=== PATIENT | male | born 1940 | race Caucasian/White ===

== ENCOUNTER 2016-08-11 12:45 | Emergency (ER) | payer MEDICARE ==
[2016-08-11 13:25] LABS: BASOPHILS 0.5 % (0.0-2.0); EOSINOPHILS 0.6 % (0.0-6.0); HEMATOCRIT 44.8 % (42.0-54.0); HEMOGLOBIN 15.4 g/dL (14.0-18.0); LYMPHOCYTES 12.2 % (20.0-40.0); LYMPHOCYTES# 0.8 X 10^3uL (0.8-3.8); MEAN CELL VOLUME 94.4 fL (80.0-100.0); MEAN CORPUS. HGB CONCENTRATION 34.4 g/dL (32.0-36.0); MEAN CORPUSCULAR HEMOGLOBIN 32.5 pg (29.0-35.0); MEAN PLATELET VOLUME 8.1 fL (7.4-10.4); MONOCYTES 6.7 % (2.0-10.0); MONOCYTES# 0.5 X 10^3uL (0.2-1.0); NEUTROPHILS# 5.4 X 10^3uL (2.6-6.7); RED BLOOD COUNT 4.74 X 10^6uL (4.20-6.10); RED CELL DISTRIBUTION WIDTH 13.1 % (11.5-14.5); WHITE BLOOD COUNT 6.7 X 10^3uL (3.9-10.7)
[2016-08-11] MEDS ORDERED: NORMAL SALINE 500 ML IV ONE ×2 (13:29→14:21)
[2016-08-11 13:32] LABS: CALCIUM 9.5 mg/dL (8.4-10.2); CREATININE 1.3 mg/dL (0.7-1.3); POTASSIUM 5.6 mmol/L (3.5-5.1)
[2016-08-11] MEDS ORDERED: INSULIN REGULAR HUMAN 100 UNITS/ML ML ONE (13:32)
[2016-08-11 13:37] LABS: BETA HYDROXYBUTYRATE 1.17 mmol/L (<0.40)
[2016-08-11 16:21] LABS: BETA HYDROXYBUTYRATE 0.23 mmol/L (<0.40); CALCIUM 9.4 mg/dL (8.4-10.2); CREATININE 1.2 mg/dL (0.7-1.3); POTASSIUM 4.5 mmol/L (3.5-5.1)
--- NOTE | 2016-08-11 16:49 | ER NURSING DOCUMENTATION ---
Nurse's Notes [facility] Name:Bernard Valles Age:75 yrs Sex:Male :1940 Arrival Date:08/11/2016 Time:12:45 Bed4 Private MD: Diagnosis:Diabetes Mellitus, Type 1 with Hyperglycemia Presentation: 08/11 12:55 Presenting complaint: Patient states: his insulin pump quit working and his blood sugar sc1 is over 400. Pt. visiting from [facility] Transition of care: patient was not received from another setting of care. Notified ED Physician of patient's arrival and CC Dr. Eason notified. 12:55 Acuity: FREEMAN 3 sc1 12:55 Method Of Arrival: Private Vehicle [facility] [place] Triage Assessment: 12:59 General: Appears in no apparent distress, well developed, well nourished, well groomed, sc1 Behavior is cooperative, pleasant. Pain: Denies pain. Historical: - Allergies: No known drug Allergies; - Home Meds: 1. humalog pump 2. Lisinopril Oral 3. Hydrochlorothiazide Oral 4. Levoxyl Oral 5. Vitamin B-12 Oral 6. cholesterol med - PMHx: Diabetes - IDDM; - PSHx: HERNIA REPAIR; - Ebola Screening: : Patient negative for fever greater than or equal to 101.5 degrees Fahrenheit, and additional compatible Ebola Virus Disease symptoms. Patient denies exposure to infectious person. Patient denies travel to an Ebola-affected area in the 21 days before illness onset. No symptoms or risks identified at this time. . - Immunization history: Pneumococcal vaccine is up to date, Flu Vaccine < 1 year. - Social history: Smoking status: Patient states was never smoker of tobacco. Patient/guardian denies using alcohol, street drugs, IV drugs, marijuana. Screenin:26 Infectious Disease Risk None. Abuse screen: Denies threats or abuse. Nutritional sc1 screening: No deficits noted. Vital Signs: 13:00 BP 152 / 76; Pulse 76; Resp 18; Temp 98.1; Pulse Ox 93% on R/A; sc1 16:04 BP 126 / 68 (auto/); sc1 16:04 Pulse Ox 93% ; sc1 16:04 Pulse 70; Resp 18; sc1 ED Course: 12:46 Patient arrived in ED. ama 12:55 Radha Navarro RN is Primary Nurse. sc1 12:59 Triage completed. sc1 13:13 Isaac Eason MD is Attending Physician. il 13:25 Inserted peripheral IV: 20 gauge in right forearm and blood collected. sc1 13:26 Valuables Remains with patient. sc1 16:55 Discontinued IV intact, bleeding controlled, pressure dressing applied, No sc1 redness/swelling at site. Administered Medications: 13:25 Drug: Insulin Regular Human 10 units; Route: Sub-Q; Site: right upper arm; sc1 16:58 Follow up: Response: No adverse reaction; No adverse reaction, blood sugar is lowered. il1 13:25 Drug: NS 0.9% 500 ml; Route: IV; Rate: bolus; Site: right forearm; Delivery: [place] sc1 Tubing; 15:20 Follow up: IV Status: Completed infusion; IV Intake: 500ml 14:11 Drug: NS 0.9% 500 ml; Route: IV; Rate: bolus; Site: right forearm; Delivery: [place] sc1 Tubing; 15:24 Follow up: IV Status: Completed infusion; IV Intake: 500ml il1 14:15 Drug: Insulin Regular Human 10 units; Route: Sub-Q; Site: left lower abdomen; il1 16:59 Follow up: Response: No adverse reaction; No adverse reaction, blood sugar is lowered. il1 14:30 Drug: NS 0.9% 500 ml; Route: IV; Rate: bolus; Site: right forearm; Delivery: [place] sc1 Tubing; 15:25 Follow up: IV Status: Completed infusion; IV Intake: 500ml il1 15:23 Drug: NS 0.9% 1000 ml; Route: IV; Rate: 250 ml/hr; Site: right forearm; Delivery: sc1 [place] Tubing; 17:00 Follow up: IV Status: Infusion discontinued; IV Intake: 300ml il1 16:45 Drug: Insulin Regular Human 5 units; Route: Sub-Q; Site: left upper abdomen; il1 16:59 Follow up: Response: No adverse reaction; Medication administered at discharge. il1 Point of Care Testing: Blood Glucose: 13:00 Blood Glucose: 475 mg/dL; sc1 14:16 Blood Glucose: 475 mg/dL; sc1 15:06 Blood Glucose: 45 mg/dL; sc1 16:00 Blood Glucose: 334 mg/dL; sc1 Ranges: Intake: 15:20 IV: 500ml; Total: 500ml. st 15:24 IV: 500ml; Total: 1000ml. il1 15:25 IV: 500ml; Total: 1500ml. il1 17:00 IV: 300ml; Total: 1800ml. il1 Outcome: 16:40 Discharge ordered by . il 16:49 Patient left the ED. nf 16:55 Discharged to home ambulatory. [facility] [place] 16:55 Condition: improved 16:55 Discharge instructions given to patient, Instructed on discharge instructions, follow up and referral plans. Demonstrated understanding of instructions. 08/12 17:07 Discharge F/U Call: Spoke with: patient. Did your discharge instructions answer all mk4 of your questions? yes Have you made a f/u appointment? yes Overall Care on a scale of 1-10 with 10 being the best care, you rate our care as: the rating of 9. Signatures: Melissa Nicholson RN RN st Campbell, Sandy, RN RN [facility] [place] Regla Owens RN RN nf Chew, Scott, MD MD sc Averdick, Andrew, Reg Reg ama King, Melody mk4
--- NOTE | 2016-08-11 16:49 | ER PHYSICIAN DOCUMENTATION ---
Physician Documentation [facility] Name:Bernard Valles Age:75 yrs Sex:Male :1940 Arrival Date:08/11/2016 Time:12:45 Bed4 Private MD: Isaac Smiley Disposition: 08/11/16 16:40 Discharged to Home/Self Care. Impression: Diabetes Mellitus, Type 1 with Hyperglycemia. - Condition is Good. - Discharge Instructions: DIABETIC HYPERGLYCEMIA. - Medical Reconciliation form form. - Follow up: Private Physician; When: 1 - 2 days; Reason: Recheck today's complaints, Continuance of care. - Problem is new. - Symptoms have improved. HPI: 08/11 13:38 This 75 yrs old Male presents to ER via Private Vehicle with complaints of sc High Blood Sugar. 13:38 The patient or guardian reports hyperglycemia, that was potentially precipitated by sc forgetting medications, insulin pump failure today. Onset: The symptom(s)/episode began/occurred today. Associated signs and symptoms: Pertinent positives: None. Pertinent negatives: diaphoresis, hair loss, nausea, polydipsia, polyphagia. Current symptoms: In the emergency department the patient's symptoms are unchanged from the initial presentation. The patient has experienced similar episodes in the past, multiple times. Patient didn't have new cartridge or syringes or insulin with him. Wants to start treating hyperglycemia then proceed home to tend to pump. No recent illness but left wrist fracture 3 days ago. Wrist sore but treated and follow up scheduled. No other injuries. Feels likely pump fails because of 51 yr h/o DM and difficulty finding suitable sites.. Historical: - Allergies: No known drug Allergies; - Home Meds: 1. humalog pump 2. Lisinopril Oral 3. Hydrochlorothiazide Oral 4. Levoxyl Oral 5. Vitamin B-12 Oral 6. cholesterol med - PMHx: Diabetes - IDDM; - PSHx: HERNIA REPAIR; - Ebola Screening: : Patient negative for fever greater than or equal to 101.5 degrees Fahrenheit, and additional compatible Ebola Virus Disease symptoms. Patient denies exposure to infectious person. Patient denies travel to an Ebola-affected area in the 21 days before illness onset. No symptoms or risks identified at this time. . - Immunization history: Pneumococcal vaccine is up to date, Flu Vaccine < 1 year. - Social history: Smoking status: Patient states was never smoker of tobacco. Patient/guardian denies using alcohol, street drugs, IV drugs, marijuana. ROS: 13:42 Eyes: Negative for injury, pain, redness, and discharge. sc ENT: Negative for injury, pain, and discharge. Cardiovascular: Negative for chest pain, palpitations, and edema. Respiratory: Negative for shortness of breath, cough, wheezing, and pleuritic chest pain. Abdomen/GI: Negative for abdominal pain, nausea, vomiting, diarrhea, and constipation. Back: Negative for injury and pain. Skin: Negative for injury, rash, and discoloration. 13:42 Neuro: Negative for headache, weakness, numbness, tingling, and seizure. sc 13:42 Constitutional: Negative for fever, malaise, poor PO intake. 13:42 Neck: Negative for injury or acute deformity. Exam: Head/Face: Normocephalic, atraumatic. Chest/axilla: Normal chest wall appearance and motion. Nontender with no deformity. No lesions are appreciated. Cardiovascular: Regular rate and rhythm with a normal S1 and S2. No gallops, murmurs, or rubs. Normal PMI, no JVD. No pulse deficits. Skin: Warm, dry with normal turgor. Normal color with no rashes, no lesions, and no evidence of cellulitis. 13:42 Neuro: Awake and alert, GCS 15, oriented to person, place, time, and situation. sc Cranial nerves II-XII grossly intact. Motor strength 5/5 in all extremities. Sensory grossly intact. Cerebellar exam normal. Normal gait. 13:42 Constitutional: The patient appears in no acute distress, alert, awake. 13:42 Eyes: Pupils: equal, round, and reactive to light and accomodation. 13:42 Neck: External neck: no acute changes. 13:42 Respiratory: the patient does not display signs of respiratory distress, Respirations: normal, Breath sounds: are normal. 13:42 Abdomen/GI: Bowel sounds: normal, Palpation: abdomen is soft and non-tender. Vital Signs: 13:00 BP 152 / 76; Pulse 76; Resp 18; Temp 98.1; Pulse Ox 93% on R/A; sc1 16:04 BP 126 / 68 (auto/); sc1 16:04 Pulse Ox 93% ; sc1 16:04 Pulse 70; Resp 18; sc1 MDM: 13:13 Patient medically screened. la 13:49 Differential diagnosis: DKA, hyperglycemia. Data reviewed: vital signs, nurses notes, la lab test result(s), and as a result, I will continue to observe the patient, administer IV fluids. Counseling: I had a detailed discussion with the patient and/or guardian regarding: the historical points, exam findings, and any diagnostic results supporting the discharge/admit diagnosis, lab results, the need for outpatient follow up, to return to the emergency department if symptoms worsen or persist or if there are any questions or concerns that arise at home. Response to treatment: the patient's symptoms have markedly improved after treatment. 08/11 13:37 Order name: BETA HYDROXYBUTYRATE; Complete Time: 14:05 EDMS 08/11 13:39 Order name: CBC AUTO DIF, MDIF/RMOR IF IND; Complete Time: 14:05 EDMS 08/11 13:40 Order name: BASIC METABOLIC PANEL; Complete Time: 14:05 EDMS 08/11 16:22 Order name: BETA HYDROXYBUTYRATE; Complete Time: 16:38 EDMS 08/11 16:37 Interpretation: Normal. la 08/11 16:23 Order name: BASIC METABOLIC PANEL; Complete Time: 16:38 EDMS 08/11 16:37 Interpretation: Normal Except: SODIUM 132; CHLORIDE 97; GLUCOSE 308; BLOOD UREA sc NITROGEN 32. Dispensed Medications: 13:25 Drug: Insulin Regular Human 10 units; Route: Sub-Q; Site: right upper arm; [place] 16:58 Follow up: Response: No adverse reaction; No adverse reaction, blood sugar is lowered. [place] 13:25 Drug: NS 0.9% 500 ml; Route: IV; Rate: bolus; Site: right forearm; Delivery: [place] sc1 Tubing; 15:20 Follow up: IV Status: Completed infusion; IV Intake: 500ml 14:11 Drug: NS 0.9% 500 ml; Route: IV; Rate: bolus; Site: right forearm; Delivery: [place] sc1 Tubing; 15:24 Follow up: IV Status: Completed infusion; IV Intake: 500ml [place] 14:15 Drug: Insulin Regular Human 10 units; Route: Sub-Q; Site: left lower abdomen; [place] 16:59 Follow up: Response: No adverse reaction; No adverse reaction, blood sugar is lowered. la1 14:30 Drug: NS 0.9% 500 ml; Route: IV; Rate: bolus; Site: right forearm; Delivery: [place] sc1 Tubing; 15:25 Follow up: IV Status: Completed infusion; IV Intake: 500ml la1 15:23 Drug: NS 0.9% 1000 ml; Route: IV; Rate: 250 ml/hr; Site: right forearm; Delivery: sc1 [place] Tubing; 17:00 Follow up: IV Status: Infusion discontinued; IV Intake: 300ml la1 16:45 Drug: Insulin Regular Human 5 units; Route: Sub-Q; Site: left upper abdomen; la1 16:59 Follow up: Response: No adverse reaction; Medication administered at discharge. [place] Point of Care Testing: Blood Glucose: 13:00 Blood Glucose: 475 mg/dL; sc1 14:16 Blood Glucose: 475 mg/dL; sc1 15:06 Blood Glucose: 45 mg/dL; sc1 16:00 Blood Glucose: 334 mg/dL; la1 Ranges: Critical Glucose Levels:Adult <50 mg/dl or >400 mg/dl <40 mg/dl or >180 mg/dl Signatures: Radha Navarro RN RN [place] Regla Owens RN RN Isaac Eason MD MD [facility] dubon RN st
== END 2016-08-11 16:49 | disposition home or self-care (01) ==
LOC: ER 12:45
DX: E10.65 Type 1 diabetes mellitus with hyperglycemia (principal); T85.614A Breakdown (mechanical) of insulin pump, initial encounter; Z96.41 Presence of insulin pump (external) (internal); Z79.899 Other long term (current) drug therapy
CPT/HCPCS: 36415; 80048; 82010; 85025; 96360; 96361; 96372; 99283; 99284; J1815; J7040